=== PATIENT | male | born 1945 | race Caucasian/White ===

== ENCOUNTER → 2024-05-16 15:13 | Outpatient (REF) | payer OTHER, SELFPAY | LOC: HWRAD 15:13 | PROVIDERS: ATTENDING PHYSICIAN Family Medicine | DX: S80.02XA Contusion of left knee, initial encounter (principal) | CPT/HCPCS: 73564 ==

== ENCOUNTER 2024-07-22 01:52 | Emergency (ER) | payer OTHER, SELFPAY ==
[2024-07-22 01:53] VITALS: BMI 27.3
[2024-07-22 01:58] VITALS: BP 196/96
[2024-07-22 02:17] LABS: Urine Albumin Negative (Neg - Trace); Urine Bilirubin Negative (Negative); Urine Character Clear (Clear); Urine Color Yellow; Urine Glucose Negative (Negative); Urine Ketone Negative (Negative); Urine Leukocyte Negative (Negative); Urine Nitrite Negative (Negative); Urine Occult Blood 3+ (Negative); Urine Urobilinogen Negative (Neg - 1+)
[2024-07-22 02:51] VITALS: BP 138/58
--- NOTE | 2024-07-22 02:52 | ED.GENMED ---
History of Present Illness
General
Chief Complaint: Male Genito-Urinary Symptoms
Source: patient
Exam Limitations: none
Time Seen by Provider: 07/22/24 02:45
Nursing documentation reviewed up to this point in time: agreed with
History of Present Illness
History of Present Illness:
This is a 78-year-old gentleman with history of BPH maintained on tamsulosin as well as finasteride. He follows with Dr. Rodriguez. He was added August today and admits to drinking several pints of beer throughout the day and developed
urinary urgency, urinary frequency this afternoon into the evening and while driving home from the festival he had tremendous urge to void and unable to do so. He notes 1 similar episode of urinary obstruction perhaps 7 years ago required Mcmullen
catheter insertion at that time.
Prior to today he has been feeling well, no dysuria nor urgency nor hematuria. He denies back pain or flank pain. He has been moving his bowels normally. He has not had a fever nor chills.
Upon arrival bladder scan registers greater than 700 mL in the bladder. ED nursing staff inserted Mcmullen catheter without difficulty. Mcmullen catheter draining clear pale yellow urine. After insertion he has had complete resolution of lower
abdominal discomfort. Currently resting comfortably.
Past History
Past History
ED Past Medical History: HTN, Hypercholesterolemia, NIDDM, Other (BPH with urinary obstruction) and Other (Protein S deficiency/DVT)
ED Past Surgical History: Cholecystectomy and Orthopedic (Lumbar laminectomy)
Social History
Tobacco: Non-smoker
Alcohol: Occasional
Living: with family
Employment: Retired
Family History
Family History: Other (Noncontributory)
Phy Exam
Physical Exam
Physical Exam:
GENERAL: Alert , in no apparent distress. 78-year-old gentleman appears his stated age, awake and alert, pleasant, appears in no acute distress.
EYE: anicteric
NECK: Supple, nontender, no meningismus, no significant adenopathy.
ENT: oral mucosa is moist. No rhinorrhea.
CARDIAC: Regular rate and rhythm. no murmur.
LUNGS: Clear breath sounds bilaterally, no acute respiratory distress, no wheezes/rales/rhonchi
ABDOMEN: Soft, nondistended, without focal tenderness, no r/g, no cvat. normoactive BS. Mcmullen catheter draining pale clear yellow urine.
NEUROLOGICAL: Alert and oriented x3, no focal neuro deficits.
SKIN: Warm and dry, normal color, skin intact. No rash.
MUSCULOSKELETAL: No C/C/E. peripheral pulses are full and equal b/l. No palpable tenderness.
PSYCH: Normal and appropriate interaction.
Course
Orders/Labs/Results
Orders:
Orders
07/22/24 02:10
Urine Microscopic Reflex Cult Urgent
Urine Reflex Culture from UA [Urinalysis Reflex To Culture] Urgent
Date Specimen was Collected: 07/22/24
Time Specimen was Collected: 02:08
Abnormal Lab Results
07/22/24
02:10
Ur Occult Blood Reflex 3+ A
(Negative)
Vital Signs
Initial and Last Documented VS:
Initial Vital Signs
Temp Pulse Resp BP Pulse Ox
98.6 F 82 18 196/96 99
07/22/24 01:58 07/22/24 01:58 07/22/24 01:58 07/22/24 01:58 07/22/24 01:58
Last Documented Vital Signs
Temp Pulse Resp BP Pulse Ox
98.6 F 76 18 196/96 99
07/22/24 01:58 07/22/24 02:51 07/22/24 01:58 07/22/24 01:58 07/22/24 02:51
MDM/Problems Addressed
Differential Diagnosis Includes:
History of BPH, 1 previous episode of urinary retention presents with acute urinary retention likely related to alcohol consumption throughout the day.
Complete relief of symptoms after Mcmullen catheter inserted. Currently resting comfortably.
Initial urinalysis shows +3 blood, nitrite negative, leukocyte esterase negative. Urine microscopic is pending but patient has not had UTI symptoms prior to onset of urinary retention.
Will give a one-time dose of antibiotic for UTI prevention and will plan to discharge to home with Mcmullen catheter in place with plan for follow-up with Dr. Rodriguez this week.
Chronic conditions affecting care: DM, HTN and Other (BPH; protein S deficiency chronically maintained on Coumadin)
Acute Exacerbation and/or Progression of Chronic Illness: Other (BPH with acute urinary retention)
*Pulse Oximetry
Patient hypoxic: no
*Critical Care Note
Total Time (30-74mins, 75-104mins- exclusive of procedures): Not Applicable
ED Attending Note
-
Portions of this chart may have been created with voice recognition software.� Occasional wrong word or��sound alike� substitutions may have occurred due to the inherent limitations of voice recognition software.
Discharge Plan
Departure
Patient Disposition: Home (Routine Discharge)
Date of Disposition: 07/22/24
Time of Disposition: 03:03
Patient with high blood pressure during this ER visit?: No
Condition: Good
Discharge Problem:
Acute urinary retention
Instructions: How to Care for Your Mcmullen Catheter, Male
Prescriptions:
No Action
amlodipine 2.5 MG tablet
2.5 mg PO DAILY
tamsulosin 0.4 MG capsule
0.4 mg PO DAILY
losartan 25 MG tablet
50 mg PO QPM
metformin 500 MG tablet extended release 24hr
1,000 mg PO BID
Patient Comments:
takes at noon & 1800
duloxetine 30 MG capsule,delayed release(DR/EC)
60 mg PO DAILY
folic acid 0.8 MG capsule
0.8 mg PO QPM
Lovastatin
80 mg PO QPM
warfarin [Jantoven] 10 MG tablet
10 mg PO MOWEFR
warfarin [Jantoven] 5 MG tablet
9 mg PO SUTUTHSA
finasteride 5 MG tablet
5 mg PO HS
Magnesium 250 MG Tablet
250 mg PO HS
Safety [place]'s Wort 300 MG Tablet
300 mg PO BID
Referrals:
Jose Manuel Rodriguez MD [Active] - Call in 1-3 days for appt
Miles Merida MD [Family Provider] -
Interventions
Interventions:
*Risk Screen - Suicide Last Done: 07/22/24 01:54
*General Assessment Last Done: 07/22/24 01:54
*Neglect/Abuse Screening Last Done: 07/22/24 01:54
ED- Fall Risk Assessment Last Done: 07/22/24 02:49
*ED COVID-19 Vaccine History Last Done: 07/22/24 01:54
ED-Male Genitourinary Assessment Last Done: 07/22/24 02:49
Discharge Date and Time
Print Language: THAI
[2024-07-22 03:00] VITALS: BP 148/73
[2024-07-22] MEDS: MONUROL 3 GM PO (03:12)
[2024-07-22 03:26] LABS: Urine Red Blood Cell 0-2 /HPF (0-2); Urine White Cell None Seen /HPF (0-5)
== END 2024-07-22 03:33 | disposition home or self-care (01) ==
LOC: EMR 01:52
PROVIDERS: Emergency Medicine; EMERGENCY PHYSICIAN Emergency Medicine; FAMILY PHYSICIAN Family Medicine
DX: N40.1 Benign prostatic hyperplasia with lower urinary tract symptoms (principal); R33.8 Other retention of urine; I10 Essential (primary) hypertension; E11.9 Type 2 diabetes mellitus without complications; E78.00 Pure hypercholesterolemia, unspecified; D68.59 Other primary thrombophilia; M19.90 Unspecified osteoarthritis, unspecified site; M48.00 Spinal stenosis, site unspecified; Z90.49 Acquired absence of other specified parts of digestive tract; Z86.718 Personal history of other venous thrombosis and embolism; Z87.891 Personal history of nicotine dependence; Z79.84 Long term (current) use of oral hypoglycemic drugs; Z79.899 Other long term (current) drug therapy; Z88.1 Allergy status to other antibiotic agents
CPT/HCPCS: 99284; 51798; 51702; 81003; 81015

== ENCOUNTER 2025-06-15 16:23 | Emergency (ER) | payer OTHER, SELFPAY ==
[2025-06-15 16:25] VITALS: BP 153/82
[2025-06-15 16:42] LABS: Hematocrit 39.8 % (39.0-52.0); Hemoglobin 13.1 g/dL (13.0-18.0); Mean Corp Hgb Conc. 32.9 g/dL (33.0-37.0); Mean Corpuscular Volume 86.3 fL (80.0-94.0); Platelet Count 198 10^3/uL (130-400); Red Cell Dist. Width 14.2 % (11.5-14.5)
[2025-06-15 16:54] LABS: APTT 39.0 Sec (23.4-35.0)
[2025-06-15 17:05] LABS: ALT (SGPT) 34 U/L (0-50); AST (SGOT) 60 U/L (17-59); Albumin 4.7 g/dl (3.5-5.0); Alkaline Phosphatase 97 U/L (38-126); Blood Urea Nitrogen 24 mg/dl (9-20); Calcium 8.9 mg/dl (8.4-10.2); Carbon Dioxide 22 mmol/L (22-30); Chloride 107 mmol/L (98-107); Glucose 114 mg/dl (70-99); Potassium 4.7 mmol/L (3.5-5.1); Sodium 139 mmol/L (135-145); Total Protein 7.2 g/dl (6.3-8.2); eGFR > 60.00
[2025-06-15 18:00] VITALS: BP 138/71
[2025-06-15 19:14] LABS: INR 2.25; PT 25.3 Sec (11.4-14.6)
[2025-06-15] MEDS: NORCO 5/325 1 TABLET PO (20:26)
--- NOTE | 2025-06-15 23:35 | ED.MUSCINJ ---
HPI-Injury
General
Chief Complaint: Fall
Source: patient
Exam Limitations: none
Time Seen by Provider: 06/15/25 17:50
Nursing documentation reviewed up to this point in time: agreed with
History of Present Illness-Injury
Is this injury a work related problem?: No
Is pt an associate of [facility]/[place]?: No
Initial Injury comments:
Patient to ED wt complaint of left shoulder pain. Admits to drinking last PM. Fell off a stool. Sig/other reports he did hit his head. He has a superficial abrasion to left forehead. Came to ED tonight because of shoulder pain. Currently taking
coumadin
Past History
Past History
ED Past Medical History: HTN, Hypercholesterolemia, NIDDM, Other (BPH with urinary obstruction) and Other (Protein S deficiency/DVT)
ED Past Surgical History: Cholecystectomy and Orthopedic (Lumbar laminectomy)
Social History
Tobacco: Non-smoker
Alcohol: Occasional
Living: with family
Employment: Retired
Family History
Family History: Other (Noncontributory)
Review of Systems
Review of Systems
Allergies reviewed?: Yes
All Other Systems: ROS reviewed and negative except as documented in HPI and ROS
Constitutional: Reports no symptoms
EENT: Reports no symptoms
Respiratory: Reports no symptoms
Cardiac: Reports no symptoms
ABD/GI: Reports no symptoms
Musculoskeletal: Reports joint pain (pain to left shoulder)
Skin: Reports other (abrasion left forehead)
Neurological: Reports no symptoms
Psychiatric: Reports no symptoms
Musculoskeletal Injury Exam
Musculoskeletal Injury Exam
Left clavicle:
Pain with Movement?: Moderate
Tender to palpation?: Moderate
Soft tissue swelling?: Moderate
External deformity and angulation?: None
Joint effusion?: None
Contusion?: Moderate
Hematoma-local bleeding into tissue?: Moderate
Strain- Sprain- Tear (Connective tissue injury)?: Moderate
Crepitus with movement?: No
Joint instability?: No
Malalignment/deformity?: No
Range of motion: Limited
Distal skin color and temperature: normal-warm & good color
Capillary Refill: normal
Normal distal neurovascular exam?: Yes
Peripheral Pulses: radial (left): 3+
Left Shoulder:
Pain with Movement?: Moderate
Tender to palpation?: Moderate
Soft tissue swelling?: None
External deformity and angulation?: None
Joint effusion?: None
Contusion?: Moderate
Hematoma-local bleeding into tissue?: None
Strain- Sprain- Tear (Connective tissue injury)?: Moderate
Crepitus with movement?: No
Joint instability?: No
Malalignment/deformity?: No
Range of motion: Limited
Distal skin color and temperature: normal-warm & good color
Capillary Refill: normal
Normal distal neurovascular exam?: Yes
Skin Exam
Abrasion
Left Forehead:
Description of abrasion: superfical/clean
Phy Exam
General Physical Exam
General Presentation: mild distress
General age: appears stated age
General Skin: warm and dry
General Habitus: normal
General Mental: alert
Cardiovascular Exam
Cardiovascular Exam: regular rate/rhythm and no edema
Gastrointestinal Exam
Gastrointestinal Exam: non tender and soft
Neurological Exam
Neurological Exam: alert, oriented x3, CN II-XII intact, no motor deficits, no sensory deficits, speech normal and normal gait
Musculoskeletal Exam
Musculoskeletal Exam: neuro vasc intact
Skin Exam
Skin Exam: normal color, warm/dry and no rash
Psychiatric Exam
Psychiatric Exam: normal mood/affect
Injury Course
Orders/Labs/Results
Orders:
Orders
06/15/25 16:29
CT Head W/o Iv Contrast Urgent
Comment:
Reason For Exam: memory loss, fall, +coumadin.
06/15/25 16:32
CBC/No Diff [Complete Blood Count/No Diff] Urgent
Comprehensive Metabolic Panel Urgent
PTT Urgent
Prothrombin Time Urgent
Comment: ADD ON
06/15/25 18:55
Clavicle Complete, Left CR [CR Clavicle - Left Complete ] Urgent
Comment:
Reason For Exam: trauma
Shoulder, Left, Trauma CR [CR Shoulder, Trauma - Left] Urgent
Comment:
Reason For Exam: fall
06/15/25 19:03
Add On- LAB Urgent
Tests Added?: prothrombin time
06/15/25 19:55
Shoulder Immobilizer Left- Tx ONCE
Hydrocodone 5/APAP 325 [[place] 5/325] 1 tablet PO NOW STA
Abnormal Lab Results
06/15/25
16:32
RBC 4.61 L 10^6/uL
(4.70-6.10)
MCHC 32.9 L g/dL
(33.0-37.0)
PT 25.3 H Sec
(11.4-14.6)
APTT 39.0 H Sec
(23.4-35.0)
BUN 24 H mg/dl
(9-20)
Glucose 114 H mg/dl
(70-99)
AST 60 H U/L
(17-59)
06/15/25 16:32
06/15/25 16:32
*Radiology
Radiology exam reviewed: radiology read reviewed
*Pulse Oximetry
SaO2: 97
Oxygen Mode of Delivery: Room air
Patient hypoxic: no
*Critical Care Note
Total Time (30-74mins, 75-104mins- exclusive of procedures): Not Applicable
ED Attending Note
-
Portions of this chart may have been created with voice recognition software.� Occasional wrong word or��sound alike� substitutions may have occurred due to the inherent limitations of voice recognition software.
Discharge Plan
Departure
Patient Disposition: Home (Routine Discharge)
Date of Disposition: 06/15/25
Time of Disposition: 19:56
Patient with high blood pressure during this ER visit?: No
Condition: Good
Covid-19: Not Applicable
Discharge Problem:
Clavicle fracture, Head injury
Instructions: Clavicle fracture, Head Injury in Adults (DC), Preventing falls in adults
Prescriptions:
New
hydrocodone-acetaminophen 5-325 mg tablet
1 tab PO Q4H PRN (Reason: Pain) Qty: 10 0RF
No Action
amlodipine 2.5 MG tablet
2.5 mg PO DAILY
tamsulosin 0.4 MG capsule
0.4 mg PO DAILY
losartan 25 MG tablet
50 mg PO QPM
metformin 500 MG tablet extended release 24hr
1,000 mg PO BID
Patient Comments:
takes at noon & 1800
duloxetine 30 MG capsule,delayed release(DR/EC)
60 mg PO DAILY
folic acid 0.8 MG capsule
0.8 mg PO QPM
Lovastatin
80 mg PO QPM
warfarin [Jantoven] 10 MG tablet
10 mg PO MOWEFR
warfarin [Jantoven] 5 MG tablet
9 mg PO SUTUTHSA
finasteride 5 MG tablet
5 mg PO HS
Magnesium 250 MG Tablet
250 mg PO HS
Beth's Wort 300 MG Tablet
300 mg PO BID
Referrals:
Charlie Travis MD [Active, Orthopedics] - Call in 1-3 days for appt
Miles Merida MD [Family Provider, Family Practice]
Interventions
Interventions:
*Risk Screen - Suicide Last Done: 06/15/25 16:25
*General Assessment Last Done: 06/15/25 19:10
*Neglect/Abuse Screening Last Done: 06/15/25 16:25
*ED- Fall Risk Assessment Last Done: 06/15/25 19:10
*ED COVID-19 Vaccine History Last Done: 06/15/25 19:10
*Nursing Disposition Last Done: 06/15/25 20:55
ED-Musculoskeletal Assessment Last Done: 06/15/25 19:10
ED- Neurological Assessment Last Done: 06/15/25 19:10
ED-Skin Assessment Last Done: 06/15/25 19:12
Discharge Date and Time
Discharge Date/Time: 06/15/25 20:55
Print Language: CZECH
== END 2025-06-15 20:55 | disposition home or self-care (01) ==
LOC: EMR 16:23
PROVIDERS: Emergency Medicine; EMERGENCY PHYSICIAN Emergency Medicine; FAMILY PHYSICIAN Family Medicine
DX: S42.002A Fracture of unspecified part of left clavicle, initial encounter for closed fracture (principal); S09.90XA Unspecified injury of head, initial encounter; S00.81XA Abrasion of other part of head, initial encounter; W08.XXXA Fall from other furniture, initial encounter; I10 Essential (primary) hypertension; E78.00 Pure hypercholesterolemia, unspecified; E11.9 Type 2 diabetes mellitus without complications; N40.1 Benign prostatic hyperplasia with lower urinary tract symptoms; Z79.01 Long term (current) use of anticoagulants; Z86.718 Personal history of other venous thrombosis and embolism; Z90.49 Acquired absence of other specified parts of digestive tract
CPT/HCPCS: 99284; 70450; 73000; 73030; 80053; 85027; 85610; 85730

== ENCOUNTER 2025-07-16 15:09 | Outpatient (RCR) | payer OTHER, SELFPAY | END 2025-07-16 23:59 | disposition home or self-care (01) | LOC: RPT 15:09 | PROVIDERS: ATTENDING PHYSICIAN Physician Assistant Surgical; FAMILY PHYSICIAN Family Medicine | DX: S42.032D Displaced fracture of lateral end of left clavicle, subsequent encounter for fracture with routine healing (principal); Z73.6 Limitation of activities due to disability; M62.81 Muscle weakness (generalized); W08.XXXD Fall from other furniture, subsequent encounter | CPT/HCPCS: 97010; 97110; 97140; 97161 ==

== ENCOUNTER 2025-08-08 13:54 | Outpatient (RCR) | payer OTHER, SELFPAY | END 2025-08-08 23:59 | disposition home or self-care (01) | LOC: RPT 13:54 | PROVIDERS: ATTENDING PHYSICIAN Physician Assistant Surgical; FAMILY PHYSICIAN Family Medicine | DX: S42.032D Displaced fracture of lateral end of left clavicle, subsequent encounter for fracture with routine healing (principal); Z73.6 Limitation of activities due to disability; M62.81 Muscle weakness (generalized); W08.XXXD Fall from other furniture, subsequent encounter | CPT/HCPCS: 97110 ==

== ENCOUNTER 2025-08-21 09:17 | Outpatient (RCR) | payer OTHER, SELFPAY | END 2025-08-21 23:59 | disposition home or self-care (01) | LOC: RPT 09:17 | PROVIDERS: ATTENDING PHYSICIAN Physician Assistant Surgical; FAMILY PHYSICIAN Family Medicine | DX: S42.032D Displaced fracture of lateral end of left clavicle, subsequent encounter for fracture with routine healing (principal); Z73.6 Limitation of activities due to disability; M62.81 Muscle weakness (generalized); W08.XXXD Fall from other furniture, subsequent encounter | CPT/HCPCS: 97110 ==